=== PATIENT | female | born 1985 | race Caucasian/White ===

== ENCOUNTER 2017-08-17 11:52 | Outpatient (CLI) | payer OTHER ==
[~2017-08-17 11:52] MED LIST: NEURONTIN300 MG PO; POLY119PG PO
== END 2017-08-17 15:38 | disposition home or self-care (01) ==
LOC: TOM 11:52
DX: J31.0 Chronic rhinitis (principal)

== ENCOUNTER 2018-02-09 08:05 | Outpatient (CLI) | payer OTHER | END 2018-02-09 08:42 | disposition home or self-care (01) | LOC: MAMO-SONO 08:05 | DX: Z12.31 Encounter for screening mammogram for malignant neoplasm of breast (principal); N60.11 Diffuse cystic mastopathy of right breast ==

== ENCOUNTER 2021-08-11 12:23 | Outpatient (CLI) | payer OTHER | END 2021-08-11 12:31 | disposition home or self-care (01) | LOC: RAD 12:23 | DX: Z01.89 Encounter for other specified special examinations (principal) ==

== ENCOUNTER 2022-06-20 10:09 | Outpatient (CLI) | payer OTHER | END 2022-06-20 10:24 | disposition home or self-care (01) | LOC: RAD 10:09 | PROVIDERS: ATTEND Anesthesiology | DX: M79.672 Pain in left foot (principal) ==

== ENCOUNTER → 2022-07-18 | Outpatient (CLI) | payer OTHER | END | disposition home or self-care (01) | LOC: RAD 09:09 | PROVIDERS: ATTEND Anesthesiology | DX: S92.325A Nondisplaced fracture of second metatarsal bone, left foot, initial encounter for closed fracture (principal) ==